=== PATIENT | male | born 1975 | race American Indian/Alaskan Native ===

== ENCOUNTER 2017-04-08 10:45 | Emergency (ER) | payer OTHER ==
[2017-04-08 11:36] VITALS: BP 138/80
[2017-04-08] MEDS ORDERED: DELTASONE PO ONE (14:27)
[2017-04-08] MEDS ORDERED: MOTRIN PO ONE ×2 (14:27→14:58)
--- NOTE | 2017-04-08 14:31 | Emergency Department Report ---
ED Lower Extremity HPI - General Chief Complaint: Extremity Problem,Nontraumatic Stated Complaint: RIGHT ANKLE PAIN Time Seen by Provider: 04/08/17 14:24 Source: patient Mode of arrival: Wheelchair Limitations: No Limitations - History of Present Illness Initial Comments: pt is a 41 y/o aam with hx of gout who presents for acute exacerbation of same pt state pain x 4 days pt states not currently taking gout regimen as " I just come in here when it flares pt denies injury fall or trauma, symptoms now include pain erythema swelling pain with palpation and ambulation. pt denies weakness no numbness no tingling. Onset/Timin -: days(s) Injury: Ankle: Left, Foot: Left, Toes: Left Type of Injury: other (gout ) Place: home Severity: moderate Severity scale (0 -10): 4 Improves With: NSAID Worsens With: weight bearing, movement, palpation Context: other (none) Associated Symptoms: swelling, able to partially bear weight. denies: numbness , tingling Treatments Prior to Arrival: other (onone ) - Related Data Previous Rx's Medication Instructions Recorded Last Taken Type Clindamycin [Clindamycin CAP] 300 mg PO Q8H #20 cap 11/08/15 Unknown Rx Ibuprofen [Motrin] 800 mg PO Q8HR PRN #20 tablet 11/08/15 Unknown Rx HYDROcodone/APAP 5-325 [Cabot 1 each PO Q6HR PRN #10 tablet 11/30/15 Unknown Rx 5/325] Sulfamethoxazole/Trimethoprim 1 each PO BID #20 tablet 11/30/15 Unknown Rx [Bactrim DS TAB] Indomethacin [Indocin] 25 mg PO Q8H #30 capsule 04/08/17 Unknown Rx predniSONE [Deltasone] 40 mg PO QDAY #10 tablet 04/08/17 Unknown Rx Allergies Allergy/AdvReac Type Severity Reaction Status Date / Time No Known Allergies Allergy Unverified 11/08/15 14:23 ED Review of Systems ROS: Stated complaint: RIGHT ANKLE PAIN Other details as noted in HPI Constitutional: denies: chills, fever Eyes: denies: eye pain, eye discharge, vision change ENT: denies: ear pain, throat pain Respiratory: denies: cough, shortness of breath, wheezing Cardiovascular: denies: chest pain, palpitations Endocrine: no symptoms reported Gastrointestinal: denies: abdominal pain, nausea, diarrhea Genitourinary: denies: urgency, dysuria Musculoskeletal: arthralgia Skin: denies: rash, lesions Neurological: denies: headache, weakness, paresthesias Psychiatric: denies: anxiety, depression Hematological/Lymphatic: denies: easy bleeding, easy bruising ED Past Medical Hx - Past Medical History Previous Medical History?: No - Surgical History Past Surgical History?: No - Social History Smoking Status: Never Smoker Substance Use Type: None - Medications Home Medications: Home Medications Medication Instructions Recorded Confirmed Last Taken Type Clindamycin [Clindamycin CAP] 300 mg PO Q8H #20 cap 11/08/15 Unknown Rx Ibuprofen [Motrin] 800 mg PO Q8HR PRN #20 tablet 11/08/15 Unknown Rx HYDROcodone/APAP 5-325 [Cabot 1 each PO Q6HR PRN #10 tablet 11/30/15 Unknown Rx 5/325] Sulfamethoxazole/Trimethoprim 1 each PO BID #20 tablet 11/30/15 Unknown Rx [Bactrim DS TAB] Indomethacin [Indocin] 25 mg PO Q8H #30 capsule 04/08/17 Unknown Rx predniSONE [Deltasone] 40 mg PO QDAY #10 tablet 04/08/17 Unknown Rx ED Physical Exam - General Limitations: No Limitations General appearance: alert, in no apparent distress - Head Head exam: Present: atraumatic, normocephalic - Eye Eye exam: Present: normal appearance, PERRL, EOMI Pupils: Present: normal accommodation - ENT ENT exam: Present: mucous membranes moist - Neck Neck exam: Present: normal inspection, full ROM. Absent: lymphadenopathy, thyromegaly - Respiratory Respiratory exam: Present: normal lung sounds bilaterally. Absent: respiratory distress - Cardiovascular Cardiovascular Exam: Present: regular rate, normal rhythm. Absent: systolic murmur, diastolic murmur, rubs, gallop - GI/Abdominal GI/Abdominal exam: Present: soft, normal bowel sounds - Rectal Rectal exam: Present: deferred - Extremities Exam Extremities exam: Present: tenderness, normal capillary refill, joint swelling. Absent: pedal edema, calf tenderness - Expanded Lower Extremity Exam Left Ankle exam: Present: full ROM, tenderness, swelling. Absent: abrasion, laceration, ecchymosis, deformity, crepidus, dislocation, erythema, anterior draw sign Foot/Toe exam: Present: tenderness, swelling (left great toe pain swellig erythema ), erythema (mild erythema ). Absent: abrasion, laceration, ecchymosis , deformity, crepidus, dislocation, amputation, puncture wound, foreign body, calcaneal tenderness, tenderness at base of 5th metatarsal, nail avulsion, subungual hematoma Neuro vascular tendon exam: Absent: no vascular compromise, pulse deficit, abnormal cap refill, motor deficit, sensory deficit, tendon deficit, extremity cold to touch, pallor, abnormal 2-point discrimination, decreased fine/light touch, foot drop, peroneal nerve deficit, significant pain with passive ROM of distal joint Gait: Positive: observed and limited by pain - Back Exam Back exam: Present: normal inspection, full ROM. Absent: tenderness - Neurological Exam Neurological exam: Present: alert, oriented X3, CN II-XII intact, normal gait, reflexes normal - Psychiatric Psychiatric exam: Present: normal affect, normal mood - Skin Skin exam: Present: warm, dry, intact, normal color. Absent: rash ED Course Vital Signs 04/08/17 11:30 Temperature 98.2 F Pulse Rate 79 Respiratory 18 Rate Blood Pressure 138/80 O2 Sat by Pulse 100 Oximetry ED Lower Extremity MDM - Medical Decision Making pt is a 41 y/o aam with hx of gout who presents for acute exacerbation of same pt state pain x 4 days pt states not currently taking gout regimen as " I just come in here when it flares pt denies injury fall or trauma, symptoms now include pain erythema swelling pain with palpation and ambulation. pt denies weakness no numbness no tingling. 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 Critical care attestation.: If time is entered above; I have spent that time in minutes in the direct care of this critically ill patient, excluding procedure time. 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
== END 2017-04-08 15:12 | disposition home or self-care (01) ==
LOC: ED 10:45
DX: M1A.0720 Idiopathic chronic gout, left ankle and foot, without tophus (tophi) (principal)
CPT/HCPCS: 99282; J7512